=== PATIENT | male | born 1995 | race Caucasian/White ===

== ENCOUNTER 2023-07-09 11:15 | Observation (INO) | payer OTHER ==
[2023-07-09] MEDS ORDERED: Morphine 2 MG/ML VIAL SLOW IVP PRN (12:25)
[2023-07-09] MEDS ORDERED: Ondansetron ODT 4 MG TAB PO PRN (12:25)
[2023-07-09] MEDS ORDERED: Ipratropium/Albuterol 3 ML NEB NEB PRN (12:25)
[2023-07-09] MEDS ORDERED: Cyclobenzaprine 10 MG TAB PO PRN (12:25)
[2023-07-09 13:11] LABS: #Neutrophils 15.7 thou/uL (1.40-6.50); %Basophils 0.1 % (0.0-1.0); %Monocytes 5.6 % (0.0-10.0); %Neutrophils 90.8 % (42.0-75.0); Hematocrit 45.1 % (42.0-52.0); Hemoglobin 15.7 g/dL (14.0-18.0); Mean Corpuscular HGB CONC 34.8 g/dL (32.0-36.0); Mean Corpuscular Hemoglobin 31.3 pg (27.0-31.0); Mean Platelet Volume 9.7 fL (7.4-10.4); Platelet Count 203 10x3/uL (130-400); RBC Distribution Width 11.9 % (11.5-14.5); Red Blood Cell (RBC) Count 5.01 mill/uL (4.70-6.10); White Blood Cell (WBC) Count 17.3 10x3/uL (4.8-10.8)
[2023-07-09 13:27] LABS: Anion Gap 12 mmol/L (10-20); BUN (Urea Nitrogen) 12 mg/dL (8.9-20.6); Calc. Creatinine Clearance 0 mL/min (70-130); Calcium 8.9 mg/dL (7.8-10.44); Carbon Dioxide 23 mmol/L (22-29); Chloride 106 mmol/L (98-107); Estimated GFR 122; Glucose 129 mg/dL (70-105); Potassium 3.8 mmol/L (3.5-5.1); Sodium 137 mmol/L (136-145)
[2023-07-09 13:28] LABS: Prothrombin Time 13.2 sec (12.0-14.7)
[2023-07-09 13:30] LABS: PTT 23.6 sec (22.9-36.1)
[2023-07-09 15:05] VITALS: BMI 28.7
[2023-07-09] MEDS: Gabapentin 300 MG CAP PO SCH (16:11)
[2023-07-09] MEDS: Sodium Chloride 0.9% 1,000 ML IV SCH (16:12)
[2023-07-09] MEDS: Acetaminophen 325 MG TAB PO SCH (17:10)
[2023-07-09] MEDS: traMADol HCl 50 MG TAB PO SCH (17:11)
[2023-07-09] MEDS: Senokot S 8.6-50 MG TAB PO SCH (20:19)
[2023-07-09] MEDS: Famotidine/PF 20 mg/2ml Vial SLOW IVP SCH (20:20)
[2023-07-10 04:06] LABS: #Eosinphils 0.1 thou/uL (0.0-0.7); #Neutrophils 6.5 thou/uL (1.40-6.50); %Basophils 0.1 % (0.0-1.0); %Eosinophils 0.7 % (0.0-10.0); %Lymphocytes 22.1 % (21.0-51.0); %Monocytes 10.3 % (0.0-10.0); %Neutrophils 66.5 % (42.0-75.0); Hematocrit 39.9 % (42.0-52.0); Hemoglobin 13.5 g/dL (14.0-18.0); Mean Corpuscular HGB CONC 33.8 g/dL (32.0-36.0); Mean Corpuscular Hemoglobin 30.7 pg (27.0-31.0); Mean Corpuscular Volume 90.7 fl (78.0-98.0); Mean Platelet Volume 9.7 fL (7.4-10.4); Platelet Count 169 10x3/uL (130-400); RBC Distribution Width 11.9 % (11.5-14.5); White Blood Cell (WBC) Count 9.8 10x3/uL (4.8-10.8)
[2023-07-10 04:36] LABS: Anion Gap 12 mmol/L (10-20); BUN (Urea Nitrogen) 7 mg/dL (8.9-20.6); Calc. Creatinine Clearance 176 mL/min (70-130); Calcium 8.6 mg/dL (7.8-10.44); Carbon Dioxide 28 mmol/L (22-29); Chloride 104 mmol/L (98-107); Estimated GFR 121; Glucose 100 mg/dL (70-105); Potassium 3.7 mmol/L (3.5-5.1); Sodium 140 mmol/L (136-145)
[2023-07-10 08:27] VITALS: BP 116/72; TEMP 98.2
[2023-07-10] MEDS: Polyethylene Glycol 3350 17 GM Packet PO SCH (08:46)
[2023-07-10] MEDS: Famotidine 20 MG TAB PO SCH (08:47)
[2023-07-10] MEDS: traMADol HCl 50 MG TAB PO PRN (10:54)
== END 2023-07-10 11:17 | disposition home or self-care (01) ==
LOC: INTOOBSV 12:08 → SJJU 12:08
PROVIDERS: ADMIT Student in an Organized Health Care Education/Training Program; ATTEND Student in an Organized Health Care Education/Training Program
DX: S32.010A Wedge compression fracture of first lumbar vertebra, initial encounter for closed fracture (principal); S32.018A Other fracture of first lumbar vertebra, initial encounter for closed fracture; S36.039A Unspecified laceration of spleen, initial encounter; V89.2XXA Person injured in unspecified motor-vehicle accident, traffic, initial encounter
CPT/HCPCS: 36415; 72100; 80048; 85025; 85610; 85730; 86850; 86900; 86901; 96361; 96374; G0378; J7050; S0028